=== PATIENT | male | born 1970 | race Caucasian/White ===

== ENCOUNTER 2023-05-23 09:50 | Day surgery (SDC) | payer BC ==
[2023-05-18 15:45] VITALS: BMI 22.4
[2023-05-23] MEDS ORDERED: PROPOFOL 80 ML ONE (10:58)
[2023-05-23 11:57] VITALS: RESP 18; TEMP 97.9
[2023-05-23 12:17] VITALS: BP 116/72; PULSE 81
== END 2023-05-23 12:21 | disposition home or self-care (01) ==
LOC: FASU-ENDO 09:50
PROVIDERS: ATTEND Internal Medicine Gastroenterology
PROC: 0DJD8ZZ Inspection of Lower Intestinal Tract, Via Natural or Artificial Opening Endoscopic (ICD-10-PCS; principal; 2023-05-23 11:17)
DX: Z12.11 Encounter for screening for malignant neoplasm of colon (principal)
CPT/HCPCS: 82962